=== PATIENT | female | born 1995 | race African-American/Black ===

== ENCOUNTER → 2016-08-22 08:20 | Outpatient (CLI) | payer MEDICAID ==
[2016-08-22 09:10] LABS: LDL-HDL RATIO 3.3 ratio (1.5-3.5)
== END | disposition home or self-care (01) ==
LOC: D.LAB 08:20
PROVIDERS: Emergency Medicine
DX: F39 Unspecified mood [affective] disorder (principal); F60.0 Paranoid personality disorder

== ENCOUNTER 2016-11-15 10:20 | Emergency (ER) | payer MEDICAID ==
[2016-11-15 11:08] LABS: BASOPHILS 0 % (0-2); EOSINOPHILS 1.2 % (0-7); HEMATOCRIT 39.3 % (36.0-48.0); HEMOGLOBIN 12.6 g/dL (12-16); IMMATURE GRANULOCYTES 0.1 % (0-5); MCH 26.4 pg (26.0-34.0); MCHC 32.1 g/dL (31.0-37.0); MCV 82.2 fL (80.0-100.0); MEAN PLATELET VOLUME 10.3 fL (7.4-10.4); MONOCYTES 5.4 % (2-11); NEUTROPHILS 55.3 % (40-80); PLATELET COUNT 270 10x3/uL (130-400); RBC 4.78 10x6/uL (4.00-5.40); RDW 15.9 % (11.5-14.5); WBC 6.8 10x3/uL (4.8-10.8)
[2016-11-15 11:24] LABS: ALBUMIN 3.2 g/dL (3.4-5.0); ALKALINE PHOSPHATASE 55 U/L (46-116); ALT (SGPT) 18 U/L (10-68); BILIRUBIN - TOTAL 0.16 mg/dL (0.2-1.3); CALC OSMOLALITY 280 mosm/kg (275-300); CALCIUM 8.8 mg/dL (8.5-10.1); CARBON DIOXIDE 24.9 mmol/L (21.0-32.0); CHLORIDE - SERUM 107 mmol/L (98-107); CREATININE - SERUM 0.8 mg/dL (0.6-1.3); GLUCOSE 100 mg/dL (74-106); POTASSIUM - SERUM 4.4 mmol/L (3.5-5.1); PROTEIN - SERUM 7.3 g/dL (6.4-8.2); SODIUM 141 mmol/L (136-145); UREA NITROGEN 13 mg/dL (7-18); eGFR NON AFRICAN AMERICAN > 90 mL/min (90-120)
[2016-11-15 11:33] LABS: CKMB 1.4 U/L (0.0-3.6); CREATINE KINASE 173 UL (21-215)
[2016-11-15 11:34] LABS: TROPONIN-I < 0.017 ng/mL (0.000-0.060)
== END 2016-11-15 12:40 | disposition home or self-care (01) ==
LOC: D.ER 10:20
PROVIDERS: Family Medicine
DX: R07.9 Chest pain, unspecified (principal); R00.2 Palpitations; I49.9 Cardiac arrhythmia, unspecified

== ENCOUNTER → 2017-01-27 09:23 | Outpatient (CLI) | payer MEDICAID ==
[2017-01-27 10:16] LABS: ALBUMIN 3.2 g/dL (3.4-5.0); ALKALINE PHOSPHATASE 55 U/L (46-116); ALT (SGPT) 21 U/L (10-68); BILIRUBIN - TOTAL 0.34 mg/dL (0.2-1.3); CALC OSMOLALITY 281 mosm/kg (275-300); CALCIUM 8.7 mg/dL (8.5-10.1); CARBON DIOXIDE 26.9 mmol/L (21.0-32.0); CHLORIDE - SERUM 105 mmol/L (98-107); CREATININE - SERUM 0.7 mg/dL (0.6-1.3); GLUCOSE 97 mg/dL (74-106); POTASSIUM - SERUM 4.3 mmol/L (3.5-5.1); PROTEIN - SERUM 6.8 g/dL (6.4-8.2); SODIUM 140 mmol/L (136-145); UREA NITROGEN 22 mg/dL (7-18); eGFR NON AFRICAN AMERICAN > 90 mL/min (90-120)
== END | disposition home or self-care (01) ==
LOC: D.LAB 09:23
PROVIDERS: Pediatrics
DX: Z51.81 Encounter for therapeutic drug level monitoring (principal); Z79.899 Other long term (current) drug therapy

== ENCOUNTER → 2017-04-25 19:35 | Outpatient (CLI) | payer MEDICAID | END | disposition home or self-care (01) | LOC: D.SLEEP 19:35 | DX: G47.33 Obstructive sleep apnea (adult) (pediatric) (principal) ==

== ENCOUNTER → 2017-06-05 19:10 | Outpatient (CLI) | payer MEDICAID | END | disposition home or self-care (01) | LOC: D.SLEEP 05-30 20:00 | DX: G47.30 Sleep apnea, unspecified (principal) ==

== ENCOUNTER 2017-11-19 00:25 | Emergency (ER) | payer MEDICAID ==
[~2017-11-19] VITALS: Ht 147.3 cm; Wt 143.6 kg
[2017-11-19 00:37] VITALS: Ht 147.3 cm; Wt 143.6 kg
[2017-11-19] MEDS ORDERED: MICROGESTIN FE1 EACH PO (00:39)
[2017-11-19] MEDS ORDERED: TOPROL XL25 MG PO (00:39)
[2017-11-19] MEDS ORDERED: STRATTERA40 MG (00:39)
[2017-11-19] MEDS ORDERED: LATUDA40 MG PO (00:39)
[2017-11-19] MEDS ORDERED: HYDROCODONE-APA1 TAB PO (00:40)
[2017-11-19 01:21] LABS: APPEARANCE HAZY (CLEAR); BILIRUBIN NEGATIVE (NEGATIVE); COLOR YELLOW (YELLOW); GLUCOSE NEGATIVE (NEGATIVE); KETONE NEGATIVE (NEGATIVE); NITRITE NEGATIVE (NEGATIVE); PROTEIN NEGATIVE (NEGATIVE); SPECIFIC GRAVITY 1.025 (1.005-1.020); UROBILINOGEN NORMAL (NORMAL)
[2017-11-19 01:22] LABS: BACTERIA NONE SEEN /hpf (NONE SEEN); EPITHELIAL CELLS 0-5 /hpf (0-5); HCG URINE NEGATIVE (NEGATIVE); RED CELLS - URINE 25-50 /hpf (0-5); WHITE CELLS - URINE NSEEN /hpf (0-5)
[2017-11-19 02:41] LABS: BASOPHILS 0.1 % (0-2); EOSINOPHILS 1.2 % (0-7); HEMATOCRIT 38.1 % (36.0-48.0); HEMOGLOBIN 12.4 g/dL (12-16); IMMATURE GRANULOCYTES 0.3 % (0-5); MCH 27.2 pg (26.0-34.0); MCHC 32.5 g/dL (31.0-37.0); MCV 83.6 fL (80.0-100.0); MEAN PLATELET VOLUME 10.6 fL (7.4-10.4); NEUTROPHILS 54.4 % (40-80); PLATELET COUNT 262 10x3/uL (130-400); RBC 4.56 10x6/uL (4.00-5.40); RDW 14.9 % (11.5-14.5); WBC 10.8 10x3/uL (4.8-10.8)
[2017-11-19 02:45] LABS: CALC OSMOLALITY 278 mosm/kg (275-300); CALCIUM 8.6 mg/dL (8.5-10.1); CARBON DIOXIDE 28.1 mmol/L (21.0-32.0); CHLORIDE - SERUM 106 mmol/L (98-107); CREATININE - SERUM 0.9 mg/dL (0.6-1.3); GLUCOSE 100 mg/dL (74-106); POTASSIUM - SERUM 3.6 mmol/L (3.5-5.1); SODIUM 140 mmol/L (136-145); UREA NITROGEN 13 mg/dL (7-18); eGFR NON AFRICAN AMERICAN 84 mL/min (90-120)
[2017-11-19 04:05] VITALS: BP 149/70
== END 2017-11-19 04:06 | disposition home or self-care (01) ==
LOC: D.ER 00:25
PROVIDERS: Emergency Medicine
DX: R31.9 Hematuria, unspecified (principal); R30.0 Dysuria

== ENCOUNTER 2020-05-08 18:40 | Emergency (ER) | payer MEDICAID ==
[~2020-05-08] VITALS: Ht 147.3 cm; Wt 147.7 kg
[~2020-05-08 18:40] MED LIST: HYDROCODONE-APA1 TAB PO; LATUDA40 MG PO; MICROGESTIN FE1 EACH PO; STRATTERA40 MG; TOPROL XL25 MG PO
[2020-05-08 18:56] VITALS: Ht 147.3 cm; Wt 147.7 kg
[2020-05-08] MEDS ORDERED: FERROUS SULFAT325 MG PO (18:58)
[2020-05-08] MEDS ORDERED: VITAMIN C500 M1 PO (18:59)
[2020-05-08] MEDS ORDERED: VITAMIN B-121000 MCG PO (18:59)
[2020-05-08 19:24] LABS: BASOPHILS 0.1 % (0-2); EOSINOPHILS 1.1 % (0-7); HEMATOCRIT 35.7 % (36.0-48.0); HEMOGLOBIN 11.4 g/dL (12-16); IMMATURE GRANULOCYTES 0.1 % (0-5); LYMPHOCYTE ABS# 3.28 10x3/uL (1.18-3.74); LYMPHOCYTES 37.5 % (15-50); MCH 25.3 pg (26.0-34.0); MCHC 31.9 g/dL (31.0-37.0); MCV 79.3 fL (80.0-100.0); MEAN PLATELET VOLUME 10.4 fL (7.4-10.4); MONOCYTES 5.3 % (2-11); NEUTROPHIL ABS# 4.88 10x3/uL (1.56-6.13); NEUTROPHILS 55.9 % (40-80); PLATELET COUNT 270 10x3/uL (130-400); RDW 16.9 % (11.5-14.5); WBC 8.7 10x3/uL (4.8-10.8)
[2020-05-08 19:43] LABS: CALC OSMOLALITY 281 mosm/kg (275-300); CALCIUM 8.8 mg/dL (8.5-10.1); CHLORIDE - SERUM 106 mmol/L (98-107); CREATININE - SERUM 0.9 mg/dL (0.6-1.3); GLUCOSE 104 mg/dL (74-106); SODIUM 141 mmol/L (136-145); UREA NITROGEN 16 mg/dL (7-18); eGFR NON AFRICAN AMERICAN 82 mL/min (90-120)
[2020-05-08 19:49] LABS: ALBUMIN 3.4 g/dL (3.4-5.0); ALKALINE PHOSPHATASE 50 U/L (30-120); ALT (SGPT) 26 U/L (10-68); BILIRUBIN - TOTAL 0.23 mg/dL (0.2-1.3); PROTEIN - SERUM 7.1 g/dL (6.4-8.2)
[2020-05-08 20:04] LABS: BILIRUBIN NEGATIVE (NEGATIVE); KETONE NEGATIVE (NEGATIVE); NITRITE NEGATIVE (NEGATIVE); UROBILINOGEN NORMAL mg/dL (< 2)
[2020-05-08 20:05] LABS: WHITE CELLS - URINE 0-5 HPF (0-4)
[2020-05-08 20:06] LABS: BACTERIA MODERATE HPF (NONE SEEN)
[2020-05-08 20:11] LABS: HCG URINE NEGATIVE (NEGATIVE)
[2020-05-08] MEDS ORDERED: PROVERA10 MG PO (21:06)
[2020-05-08 21:38] VITALS: BP 127/81
== END 2020-05-08 21:38 | disposition home or self-care (01) ==
LOC: D.ER 18:40
PROVIDERS: Family Medicine
DX: N94.6 Dysmenorrhea, unspecified (principal); E66.01 Morbid (severe) obesity due to excess calories